=== PATIENT | male | born 1975 | race Caucasian/White ===

== ENCOUNTER 2017-11-15 19:20 | Emergency (ER) | payer OTHER ==
[~2017-11-15] VITALS: Ht 177.8 cm; Wt 68.0 kg
[~2017-11-15 19:20] MED LIST: ACET325 PO; AMOCLA875 PO; AMOX1XR PO; AMOX500 PO; AZIT250 PO; BENZ100A PO; CARB200 PO; CEPH500 PO; CHLO25 PO; CIPR500 PO; CLON.1 PO; CYCL10 PO; DIAZ10 PO; DIAZ5 PO; DIPATR PO; DIPH50 PO; DOXY100 PO; GABA300 PO; GUAI600T33 PO; HYDACE10B PO; HYDACE5 PO; HYDGUAL120 PO; KETO10 PO; LORA1 PO; LORA10ER PO; METR500 PO; Norco 7.5-3251 EACH PO; OXCA300; OXCA300 PO; OXYACE5T PO; OXYACE7.5T PO; PENVK500 PO; PROACE100 PO; PROM25 PO; QUET100; QUET300; QUET300 PO; RANI150 PO; ROXICET; RXCEPH500 PO; RXDIPATR PO; RXHYDACE PO; RXOXYACE PO; RXPENVK250 PO; RXPROM25 PO; RXTRAM50 PO; SULTRIDS PO; SUMA25; SUMA25 PO; TAMS.4ER PO; TRAM50 PO; TYLENOL PRN
== END 2017-11-15 20:02 | disposition home or self-care (01) ==
LOC: ER 19:20
DX: T40.1X1A Poisoning by heroin, accidental (unintentional), initial encounter (principal); F17.210 Nicotine dependence, cigarettes, uncomplicated
CPT/HCPCS: 99284

== ENCOUNTER 2018-08-06 03:13 | Emergency (ER) | payer MEDICAID ==
[~2018-08-06] VITALS: Ht 175.3 cm; Wt 77.1 kg
[2018-08-06] MEDS ORDERED: CLIN300 PO (03:34)
[2018-08-06 03:52] LABS: BASOPHILS ABSOLUTE AUTO 0.08 K/mm3 (0.00-0.23); BASOPHILS PERCENT AUTO 1 % (0-2); EOSINOPHILS ABSOLUTE AUTO 0.35 K/mm3 (0.00-0.68); EOSINOPHILS PERCENT AUTO 2 % (0-6); Hematocrit 40.6 % (37.0-53.0); Hemoglobin 13.8 g/dL (13.5-17.5); IMMATURE GRAN ABSOLUTE AUTO 0.05 K/mm3 (0.00-0.10); IMMATURE GRAN PERCENT AUTO 0 % (0-1); LYMPHOCYTES ABSOLUTE AUTO 2.84 K/mm3 (0.84-5.20); LYMPHOCYTES PERCENT AUTO 18 % (21-46); MONOCYTES ABSOLUTE AUTO 2.56 K/mm3 (0.16-1.47); MONOCYTES PERCENT AUTO 16 % (4-13); Mean Corpuscular HGB 28.7 pg (26.0-34.0); Mean Corpuscular Volume 84 fL (80-100); Mean Platelet Volume 9.6 fL (9.1-12.4); NEUTROPHILS ABSOLUTE AUTO 9.86 K/mm3 (1.96-9.15); NEUTROPHILS PERCENT AUTO 63 % (41-73); Platelet Count 313 K/mm3 (150-400); RDW Coefficient Variation 13.8 % (11.7-14.2); RDW Standard Deviation 42.7 fL (35.1-46.3); Red Blood Cell Count 4.81 M/mm3 (4.30-5.90); White Blood Cell Count 15.74 K/mm3 (4.00-11.30)
[2018-08-06 04:10] LABS: Alanine Aminotransfer (ALT/SGP 54 U/L (12-78); Albumin, Blood 4.1 g/dL (3.4-5.0); Albumin/Globulin Ratio 0.9 (0.8-1.8); Alk Phos 81 U/L (50-136); Anion Gap 7 mmol/L (6-16); Aspartate Aminotrans (AST/SGOT 34 U/L (12-37); Bilirubin, Total 0.8 mg/dL (0.1-1.0); Blood Urea Nitrogen 33 mg/dL (8-24); Bun/Creatinine Ratio 28.2 (12.0-20.0); CO2, Blood 28 mmol/L (21-32); Calcium, Blood 9.9 mg/dL (8.5-10.1); Chloride, Blood 103 mmol/L (98-108); Creatinine, Blood 1.17 mg/dL (0.60-1.20); Globulin, Blood 4.5 g/dL (2.2-4.0); Glomerular Filtration Rate >60 (60-); Glucose, Blood 114 mg/dL (70-99); Potassium, Blood 3.9 mmol/L (3.5-5.5); Sodium, Blood 138 mmol/L (136-145); Total Protein, Blood 8.6 g/dL (6.4-8.2)
[2018-08-06] MEDS ORDERED: Vibramycin100 MG PO (04:18)
== END 2018-08-06 04:55 | disposition home or self-care (01) ==
LOC: ER 03:13
PROVIDERS: Emergency Medicine
DX: L03.116 Cellulitis of left lower limb (principal); Z88.6 Allergy status to analgesic agent; Z88.8 Allergy status to other drugs, medicaments and biological substances; Z88.5 Allergy status to narcotic agent; Z79.899 Other long term (current) drug therapy; F31.9 Bipolar disorder, unspecified; F43.10 Post-traumatic stress disorder, unspecified; F17.210 Nicotine dependence, cigarettes, uncomplicated
CPT/HCPCS: 73701; 80053; 85025; 96365-59; 99284-25; Q9967

== ENCOUNTER 2018-08-06 14:53 | Emergency (ER) | payer MEDICAID ==
[~2018-08-06] VITALS: Ht 175.3 cm; Wt 74.8 kg
[~2018-08-06 14:53] MED LIST changes: +CLIN300 PO; +Vibramycin100 MG PO
== END 2018-08-06 17:27 | disposition home or self-care (01) ==
LOC: ER 14:53
DX: L03.116 Cellulitis of left lower limb (principal); L02.416 Cutaneous abscess of left lower limb; Z88.6 Allergy status to analgesic agent; Z88.8 Allergy status to other drugs, medicaments and biological substances; Z88.5 Allergy status to narcotic agent; Z79.899 Other long term (current) drug therapy; F17.210 Nicotine dependence, cigarettes, uncomplicated
CPT/HCPCS: 10060; 87070; 87075; 87077; 87147; 87186; 87205; 99283-25

== ENCOUNTER 2019-11-27 06:24 | Inpatient (IN) | payer OTHER | END 2019-11-30 17:35 | disposition left against medical advice (07) | DRG 854 | LOC: ER 06:24 → MEDS 10:21 | PROVIDERS: ADMIT Internal Medicine | PROC: 0J9F0ZZ Drainage of Left Upper Arm Subcutaneous Tissue and Fascia, Open Approach (ICD-10-PCS; principal; 2019-11-30) | PROC: 0J990ZZ Drainage of Buttock Subcutaneous Tissue and Fascia, Open Approach (ICD-10-PCS; 2019-11-30) | DX: A41.9 Sepsis, unspecified organism (principal); E87.1 Hypo-osmolality and hyponatremia; L03.114 Cellulitis of left upper limb; L03.317 Cellulitis of buttock; L02.31 Cutaneous abscess of buttock; L02.414 Cutaneous abscess of left upper limb; F17.210 Nicotine dependence, cigarettes, uncomplicated; F19.10 Other psychoactive substance abuse, uncomplicated; F31.9 Bipolar disorder, unspecified; Z89.201 Acquired absence of right upper limb, unspecified level; F43.10 Post-traumatic stress disorder, unspecified; D64.9 Anemia, unspecified ==

== ENCOUNTER 2021-02-04 21:47 | Emergency (ER) | payer OTHER ==
[~2021-02-04] VITALS: Ht 175.3 cm; Wt 86.2 kg
[~2021-02-04 21:47] MED LIST changes: +Bactrim Ds Tab1 EACH PO; +MONDOXYNE NL100 MG PO
== END 2021-02-04 23:31 | disposition home or self-care (01) ==
LOC: ER 21:47
DX: K43.9 Ventral hernia without obstruction or gangrene (principal); K42.9 Umbilical hernia without obstruction or gangrene; Z88.6 Allergy status to analgesic agent; Z88.5 Allergy status to narcotic agent; Z88.8 Allergy status to other drugs, medicaments and biological substances
CPT/HCPCS: 99283

== ENCOUNTER 2021-08-12 20:12 | Inpatient (IN) | payer OTHER ==
[~2021-08-12] VITALS: Ht 175.3 cm; Wt 96.5 kg
[2021-08-13 00:22] LABS: BASOPHILS ABSOLUTE AUTO 0.04 K/mm3 (0.00-0.23); BASOPHILS PERCENT AUTO 1 % (0-2); EOSINOPHILS ABSOLUTE AUTO 0.44 K/mm3 (0.00-0.68); EOSINOPHILS PERCENT AUTO 7 % (0-6); Hematocrit 40.5 % (37.0-53.0); Hemoglobin 13.8 g/dL (13.5-17.5); IMMATURE GRAN ABSOLUTE AUTO 0.01 K/mm3 (0.00-0.10); IMMATURE GRAN PERCENT AUTO 0 % (0-1); LYMPHOCYTES PERCENT AUTO 34 % (21-46); MONOCYTES ABSOLUTE AUTO 0.63 K/mm3 (0.16-1.47); MONOCYTES PERCENT AUTO 10 % (4-13); Mean Corpuscular HGB 28.4 pg (26.0-34.0); Mean Corpuscular HGB Conc 34.1 g/dL (31.5-36.5); Mean Corpuscular Volume 83 fL (80-100); Mean Platelet Volume 10.3 fL (9.1-12.4); NEUTROPHILS ABSOLUTE AUTO 3.14 K/mm3 (1.96-9.15); NEUTROPHILS PERCENT AUTO 49 % (41-73); Platelet Count 282 K/mm3 (150-400); RDW Coefficient Variation 13.4 % (11.7-14.2); RDW Standard Deviation 41.1 fL (35.1-46.3); Red Blood Cell Count 4.86 M/mm3 (4.30-5.90); White Blood Cell Count 6.46 K/mm3 (4.00-11.30)
[2021-08-13 00:43] LABS: Albumin, Blood 3.5 g/dL (3.4-5.0); Bilirubin, Total 0.6 mg/dL (0.1-1.0); Bun/Creatinine Ratio 13.1 (12.0-20.0); Calcium, Blood 9.2 mg/dL (8.5-10.1); Creatinine, Blood 0.61 mg/dL (0.60-1.20); Globulin, Blood 3.4 g/dL (2.2-4.0); Magnesium, Blood 2.3 mg/dL (1.6-2.4); Potassium, Blood 3.2 mmol/L (3.5-5.5); Total Protein, Blood 6.9 g/dL (6.4-8.2)
--- NOTE | 2021-08-13 06:24 | NUR ---
08/13/21 0624 Zoe Paulson COMPUTATIONAL BIOLOGIST Yoly KEBEDE PLACED POWERGLIDE PRIOR TO BRINGING BACK TO OR
--- NOTE | 2021-08-13 09:19 | NUR ---
TRANSFER UPDATE REPORT FROM INSIDE SALES ADMINISTRATOR AT 0730, PT ARRIVED AT 0745 VIA HOSPITAL BED. PT ON 3L NC UPON ARRIVAL. PT RESTING UPON ARRIVAL.
--- NOTE | 2021-08-13 14:27 | NUR ---
UPDATE PT ASLEEP UPON ARRIVAL TO UNIT AT 0745. PT BRIEFLY AWAKE DURING ADMISSION AND EXPRESSED AGITATION TO THE MULTIPLE QUESTIONS DURING THE ADMISSION. PT ORIENTED TO ROOM AND INFORMED OF DAY GUARD PUMP. PT TOWARDS THE END OF ADMISSION PROCESS QUIT ANSWEWRING QUESTIONS AND CLOSED HIS EYES. PT BEGAN SLEEPING MOMENTS LATER. AT NOON VITALS, PT BRIEFLY WOKE UP AND WENT IEMMEDIATLEY BACK TO SLEEP. AT 1400 THIS RN AGAIN WENT INTO PT ROOM, PT REMAINED ASLEEP.
--- NOTE | 2021-08-13 16:58 | NUR ---
TRANSFER UPDATE REPORT GIVEN TO HEAD FILTER TANK TENDER HELPER AT 1600. PT LEFT UNIT AT 1635 VIA HOSPITAL BED. PT RECIEVING DILAUDID VIA METAL FABRICATING SHOP HELPER PER ORDERS KAMRAN WITH LR. PT CHART WITH PT FOR TRANSFER.
--- NOTE | 2021-08-13 17:53 | NUR ---
SHIFT SUMMARY: PATIENT WAS A TRANSFER FROM PCU TODAY 08/13/21. POD 0 SIGMOID RESECTION WITH UMBILICAL HERNIA REPAIR WITHOUT MESH PATIENT CAME INTO ROOM A&OX4 BUT IS INTERMITTENTLY SLEEPY. PATIENT IS EASILY WOKEN UP TO TOUCH. POWERGLIDE IS IN RUE AND IS INFUSING LR WITH COLON THERAPIST DILAUDID. PATIENT HAS A MIA DRESSING THAT IS C/D/I WITH ABD BINDER ON. NIELSEN IS IN PLACE AND HAS YELLOW URINE IN NIELSEN BAG. PATIENT HAS CLEARS DINNER TRAY ON BEDSIDE TABLE BUT IS ASLEEP AT THIS TIME. PATIENT WAS EDUCATED THOUGH LAST TIME HE WAS AWAKE TO TAKE THE CLEARS SLOWLY. PATIENT VERBALIZED UNDERSTANDING FOR THIS. CALLS APPROPRIATELY. CALL LIGHT WITHIN REACH. THE PLAN IS TO CONTINUE PAIN MANAGEMENT AND ENCOURAGE AMBULATION WHEN APPROPRIATE.
--- NOTE | 2021-08-14 05:07 | NUR ---
SHIFT SUMMARY A/O X4. POD1 SIG COLECTOMY W/ HERNIA REPAIR. MIDLINE MIA INTACT W/RED DRIED DRAINAGE- ABDOMINAL BINDER IN PLACE. VITAL SIGNS STABLE. PT REPORTS MINIMAL PAIN THE DILAUDID PATIENT CARE TECHNICIAN IS IN PLACE TO MANAGE PAIN. NIELSEN DRAINING DANIELLE URINE TO GRAVITY. PT REMAINED BEDREST THROUGHOUT THE NIGHT HE WAS VERY DROWSY. TOLERATING CLEAR LIQ DIET, NO N/V REPORTED. PT DENIES PASSING FLATUS AT THIS TIME- BOWEL TONES ACTIVE IN ALL 4 QUADRANTS. WILL CONTINUE TO MONITOR AND REPORT TO ONCOMING RN.
[2021-08-14 05:52] LABS: BASOPHILS ABSOLUTE AUTO 0.02 K/mm3 (0.00-0.23); BASOPHILS PERCENT AUTO 0 % (0-2); EOSINOPHILS ABSOLUTE AUTO 0.03 K/mm3 (0.00-0.68); EOSINOPHILS PERCENT AUTO 0 % (0-6); Hematocrit 35.5 % (37.0-53.0); Hemoglobin 11.8 g/dL (13.5-17.5); IMMATURE GRAN ABSOLUTE AUTO 0.03 K/mm3 (0.00-0.10); IMMATURE GRAN PERCENT AUTO 0 % (0-1); LYMPHOCYTES ABSOLUTE AUTO 1.21 K/mm3 (0.84-5.20); LYMPHOCYTES PERCENT AUTO 14 % (21-46); MONOCYTES ABSOLUTE AUTO 1.11 K/mm3 (0.16-1.47); MONOCYTES PERCENT AUTO 13 % (4-13); Mean Corpuscular HGB 28.6 pg (26.0-34.0); Mean Corpuscular HGB Conc 33.2 g/dL (31.5-36.5); Mean Corpuscular Volume 86 fL (80-100); Mean Platelet Volume 9.9 fL (9.1-12.4); NEUTROPHILS ABSOLUTE AUTO 6.29 K/mm3 (1.96-9.15); NEUTROPHILS PERCENT AUTO 73 % (41-73); Platelet Count 291 K/mm3 (150-400); RDW Coefficient Variation 13.4 % (11.7-14.2); RDW Standard Deviation 41.9 fL (35.1-46.3); Red Blood Cell Count 4.13 M/mm3 (4.30-5.90); White Blood Cell Count 8.69 K/mm3 (4.00-11.30)
[2021-08-14 06:41] LABS: Bun/Creatinine Ratio 13.2 (12.0-20.0); Calcium, Blood 8.9 mg/dL (8.5-10.1); Creatinine, Blood 0.45 mg/dL (0.60-1.20); Potassium, Blood 3.5 mmol/L (3.5-5.5)
--- NOTE | 2021-08-14 18:35 | NUR ---
SHIFT SUMMARY PT IS POD#1 FROM SIGMOID COLECTOMY AND HERNIA REPAIR. PAIN MANAGED WITH PIPELINE MAINTENANCE SUPERVISOR. PT RELUCTANT TO GET OOB BUT DID WALK IN THE ROOM AND SIT UP TO THE CHAIR THIS EVENING. PT TOLERATING CLEAR LIQUIDS. WILL MONITOR UNTIL REPORT TO KRYSTEN FLORES.
--- NOTE | 2021-08-15 04:38 | NUR ---
SHIFT SUMMARY A/O X4. POD1 SIGMOID RESECTION AND HERNIA REPAIR W/O MESH. PT STATES THAT DILAUDID VOUCHER EXAMINER IS WORKING TO MANAGING PAIN. CONTINUED CLEAR LIQ DIET THIS SHIFT, TOLERATING WELL- NO REPORTS OF N/V. PT REPORTS PASSING FLATUS. VITAL SIGNS STABLE. WILL CONTINUE TO MONITOR AND REPORT TO ONCOMING RN.
--- NOTE | 2021-08-15 18:39 | NUR ---
SHIFT SUMMARY PT IS POD#2 FROM A SIGMOID COLECTOMY WITH DR. POST. PT WAS TRANSITIONED FROM DEVELOPMENT TEAM LEAD TO PO PERCOCET WITH DILAUDID FOR BREAKTHROUGH PAIN. PT WAS ABLE TO AMBULATE IN THE HALWAYS INDEPENDENTLY. PT IS PASSING FLATUS BUT NO BM. WILL MONITOR UNTIL REPORT TO NOC RN.
--- NOTE | 2021-08-16 04:32 | NUR ---
SHIFT SUMMARY A/O X4. IND IN ROOM. POD3 SIGMOID COLECTOMY W/ HERNIA REPAIR. REPORTS PASSING FLATUS BUT NO BM AT THIS TIME. VOIDING WELL. TOLERATING CLEAR LIQ DIET. AMBULATING WELL. PAIN MANAGED W/ PO PAIN MEDICATION AND IV BREAKTHROUGH PAIN MEDICATION. NO ACUTE CHANGES THIS SHIFT. WILL CONTINUE TO MONITOR AND REPORT TO ONCOMING RN.
[2021-08-16 05:27] LABS: BASOPHILS ABSOLUTE AUTO 0.02 K/mm3 (0.00-0.23); BASOPHILS PERCENT AUTO 0 % (0-2); EOSINOPHILS ABSOLUTE AUTO 0.31 K/mm3 (0.00-0.68); EOSINOPHILS PERCENT AUTO 5 % (0-6); Hemoglobin 12.1 g/dL (13.5-17.5); IMMATURE GRAN ABSOLUTE AUTO 0.02 K/mm3 (0.00-0.10); IMMATURE GRAN PERCENT AUTO 0 % (0-1); LYMPHOCYTES ABSOLUTE AUTO 2.23 K/mm3 (0.84-5.20); LYMPHOCYTES PERCENT AUTO 37 % (21-46); MONOCYTES ABSOLUTE AUTO 0.63 K/mm3 (0.16-1.47); MONOCYTES PERCENT AUTO 10 % (4-13); Mean Corpuscular HGB 28.6 pg (26.0-34.0); Mean Corpuscular HGB Conc 33.6 g/dL (31.5-36.5); Mean Corpuscular Volume 85 fL (80-100); NEUTROPHILS ABSOLUTE AUTO 2.84 K/mm3 (1.96-9.15); NEUTROPHILS PERCENT AUTO 47 % (41-73); Platelet Count 260 K/mm3 (150-400); RDW Coefficient Variation 13.3 % (11.7-14.2); RDW Standard Deviation 41.1 fL (35.1-46.3); Red Blood Cell Count 4.23 M/mm3 (4.30-5.90); White Blood Cell Count 6.05 K/mm3 (4.00-11.30)
[2021-08-16 05:46] LABS: Bun/Creatinine Ratio 7.2 (12.0-20.0); Calcium, Blood 8.6 mg/dL (8.5-10.1); Creatinine, Blood 0.55 mg/dL (0.60-1.20); Potassium, Blood 3.2 mmol/L (3.5-5.5)
--- NOTE | 2021-08-16 13:10 | NUR ---
PATIENT AMBULATED INDEPENDENTLY OUT OF UNIT.
--- NOTE | 2021-08-16 14:00 | NUR ---
PATIENT RETURNED TO ROOM
--- NOTE | 2021-08-16 17:55 | NUR ---
SHIFT SUMMARY POD 3 SIGMOID COLECTOMY, MIDLINE MIA IN PLACE WITH GOOD SEAL. TOLERATING FULL LIQUID DIET, DENIES N/V. REPORTS HAVING 2 BM'S TODAY, SOFT/BROWN. VOIDING WELL. AMBULATING INDEPENDENTLY IN ROOM AND HALLWAYS THROUGHOUT DAY. REPORTS MODERATE PAIN THROUGHOUT SHIFT, MEDICATED WITH PERCOCET & DILAUDID PER EMAR. WILL REPORT TO ONCOMNG RN.
--- NOTE | 2021-08-17 05:32 | NUR ---
SHIFT SUMMARY POD4 SIGMOID COLECTOMY W/ HERNIA REPAIR- MIA DRESSING IN PLACE, NO CHANGES SINCE PREVIOUS ASSESSMENT. AMBULATING WELL THROUGHOUT HALLS. PASSING FLATUS WELL BOWEL MOVEMENTS, VOIDING WELL. TOLERATING FULL LIQUID DIET W/ NO REPORT OF NAUSEA OR VOMITING. PAIN MANAGED THROUGHOUT SHIFT W/ PO PAIN MEDICATIONS ONLY PER EMAR. WILL CONTINUE TO MONITOR AND REPORT TO ONCOMING RN.
[2021-08-17] MEDS ORDERED: Percocet 5-3251 EACH PO (08:23)
--- NOTE | 2021-08-17 08:52 | NUR ---
DISCHARGE POD 4 SIGMOID COLECTOMY W/ HERNIA REPAIR. MIDLINE MIA & ABDOMINAL BINDER REMAIN IN [place]. INSTRUCTED PATIENT ON REMOVING MIA TO SHOWER, WOUND & SKIN CARE AROUND INCISION. TOLERATING FULL LIQUIDS, DRINKING, & VOIDING WELL. AMBULATING HALLWAYS WELL. REPORTS PAIN TO BE TOLERABLE THIS AM. ATTEMPTED TO DISCUSS DISCHARGE INSTRUCTIONS WITH PATIENT. PATIENT APPEARED UNINTERESTED AND STATED "GO AHEAD, IM LISTENING" WHILE HE PROCEEDED TO GATHER HIS BELONGINGS AND GET DRESSED. VERBALIZED THAT HE UNDERSTOOD AND HAD NO QUESTIONS OR CONCERNS. DECLINED W/C, AMBULATED OUT INDEPENDENTLY.
== END 2021-08-17 08:50 | disposition home or self-care (01) | DRG 330 ==
LOC: ER 20:12 → PCU 08-13 02:53 → SURS 08-13 02:53 → PCU 08-13 07:43 → SURS 08-13 17:15
PROVIDERS: Student in an Organized Health Care Education/Training Program; ADMIT Surgery
PROC: 0DBN0ZZ Excision of Sigmoid Colon, Open Approach (ICD-10-PCS; principal; 2021-08-13 04:00)
PROC: 0WQF0ZZ Repair Abdominal Wall, Open Approach (ICD-10-PCS; 2021-08-13 04:00)
DX: K42.0 Umbilical hernia with obstruction, without gangrene (principal); K55.9 Vascular disorder of intestine, unspecified; F15.10 Other stimulant abuse, uncomplicated; F19.10 Other psychoactive substance abuse, uncomplicated; F31.9 Bipolar disorder, unspecified; F43.10 Post-traumatic stress disorder, unspecified; F41.9 Anxiety disorder, unspecified; Z88.5 Allergy status to narcotic agent; Z88.6 Allergy status to analgesic agent; Z88.8 Allergy status to other drugs, medicaments and biological substances; Z89.201 Acquired absence of right upper limb, unspecified level; Z90.89 Acquired absence of other organs; Z79.899 Other long term (current) drug therapy
CPT/HCPCS: 36415; 74177; 80048; 80053; 83605; 83735; 85025; 88307; 94762; 96374; 96375; 99285-25; A9270; C1751; J0295; J1100; J1170; J1650; J2250; J2270; J2405; J2704; J3010; J7030; J7120; Q9967

== ENCOUNTER 2021-12-03 03:37 | Emergency (ER) | payer OTHER ==
[~2021-12-03] VITALS: Ht 175.3 cm; Wt 77.1 kg
[~2021-12-03 03:37] MED LIST changes: +Percocet 5-3251 EACH PO
[2021-12-03] MEDS ORDERED: SULTRIDS PO (04:07)
== END 2021-12-03 04:45 | disposition home or self-care (01) ==
LOC: ER 03:37
DX: L02.31 Cutaneous abscess of buttock (principal); F17.210 Nicotine dependence, cigarettes, uncomplicated; Z88.5 Allergy status to narcotic agent; Z88.8 Allergy status to other drugs, medicaments and biological substances; Z88.6 Allergy status to analgesic agent
CPT/HCPCS: A9270

== ENCOUNTER 2022-05-18 23:43 | Inpatient (IN) | payer OTHER ==
[~2022-05-18] VITALS: Ht 172.7 cm; Wt 85.5 kg
[~2022-05-18 23:43] MED LIST changes: +Colace100 MG PO
[2022-05-19 01:28] LABS: BASOPHILS ABSOLUTE AUTO 0.04 K/mm3 (0.00-0.23); BASOPHILS PERCENT AUTO 0 % (0-2); EOSINOPHILS ABSOLUTE AUTO 0.06 K/mm3 (0.00-0.68); EOSINOPHILS PERCENT AUTO 1 % (0-6); Hematocrit 38.2 % (37.0-53.0); IMMATURE GRAN ABSOLUTE AUTO 0.04 K/mm3 (0.00-0.10); IMMATURE GRAN PERCENT AUTO 0 % (0-1); LYMPHOCYTES ABSOLUTE AUTO 1.18 K/mm3 (0.84-5.20); LYMPHOCYTES PERCENT AUTO 9 % (21-46); MONOCYTES PERCENT AUTO 14 % (4-13); Mean Corpuscular HGB 27.9 pg (26.0-34.0); Mean Corpuscular Volume 82 fL (80-100); Mean Platelet Volume 9.7 fL (9.1-12.4); NEUTROPHILS ABSOLUTE AUTO 9.93 K/mm3 (1.96-9.15); NEUTROPHILS PERCENT AUTO 76 % (41-73); Platelet Count 321 K/mm3 (150-400); RDW Coefficient Variation 12.4 % (11.7-14.2); RDW Standard Deviation 37.3 fL (35.1-46.3); Red Blood Cell Count 4.66 M/mm3 (4.30-5.90); White Blood Cell Count 13.05 K/mm3 (4.00-11.30)
[2022-05-19 02:04] LABS: Albumin, Blood 3.1 g/dL (3.4-5.0); Albumin/Globulin Ratio 0.7 (0.8-1.8); Bilirubin, Total 0.6 mg/dL (0.1-1.0); Creatinine, Blood 0.61 mg/dL (0.60-1.20); Globulin, Blood 4.5 g/dL (2.2-4.0); Potassium, Blood 3.6 mmol/L (3.5-5.5); Total Protein, Blood 7.6 g/dL (6.4-8.2)
--- NOTE | 2022-05-19 02:09 | NUR ---
PT ARRIVED FROM ED, PT ORIENTED TO ROOM, CALL LIGHT IN HAND.
[2022-05-19 05:43] LABS: BASOPHILS ABSOLUTE AUTO 0.04 K/mm3 (0.00-0.23); BASOPHILS PERCENT AUTO 0 % (0-2); EOSINOPHILS ABSOLUTE AUTO 0.18 K/mm3 (0.00-0.68); EOSINOPHILS PERCENT AUTO 2 % (0-6); Hematocrit 36.4 % (37.0-53.0); Hemoglobin 12.3 g/dL (13.5-17.5); IMMATURE GRAN ABSOLUTE AUTO 0.04 K/mm3 (0.00-0.10); IMMATURE GRAN PERCENT AUTO 0 % (0-1); LYMPHOCYTES ABSOLUTE AUTO 1.44 K/mm3 (0.84-5.20); LYMPHOCYTES PERCENT AUTO 14 % (21-46); MONOCYTES ABSOLUTE AUTO 1.38 K/mm3 (0.16-1.47); MONOCYTES PERCENT AUTO 13 % (4-13); Mean Corpuscular HGB 28.2 pg (26.0-34.0); Mean Corpuscular HGB Conc 33.8 g/dL (31.5-36.5); Mean Corpuscular Volume 84 fL (80-100); Mean Platelet Volume 10.1 fL (9.1-12.4); NEUTROPHILS ABSOLUTE AUTO 7.38 K/mm3 (1.96-9.15); NEUTROPHILS PERCENT AUTO 71 % (41-73); Platelet Count 306 K/mm3 (150-400); RDW Coefficient Variation 12.4 % (11.7-14.2); RDW Standard Deviation 37.9 fL (35.1-46.3); Red Blood Cell Count 4.36 M/mm3 (4.30-5.90); White Blood Cell Count 10.46 K/mm3 (4.00-11.30)
[2022-05-19 06:14] LABS: Albumin, Blood 2.7 g/dL (3.4-5.0); Albumin/Globulin Ratio 0.7 (0.8-1.8); Bilirubin, Total 0.7 mg/dL (0.1-1.0); Bun/Creatinine Ratio 15.7 (12.0-20.0); Calcium, Blood 8.6 mg/dL (8.5-10.1); Creatinine, Blood 0.57 mg/dL (0.60-1.20); Globulin, Blood 3.9 g/dL (2.2-4.0); Potassium, Blood 3.2 mmol/L (3.5-5.5); Total Protein, Blood 6.6 g/dL (6.4-8.2)
--- NOTE | 2022-05-19 06:26 | NUR ---
PT NPO, IV FLUIDS RUNNING. PT PLACED IN CONTACT ISOLATION IN PREPERATION FOR RETURN AFTER I/D, WOUND IN CLOSED AT THIS TIME. PT SLEEPING SINCE ARRIVAL.
[2022-05-19 12:26] LABS: U Amphetamine Screen DETECTED; U Barbituate Screen Not Detected; U Benzodiazapine Screen Not Detected; U Buprenorphine Screen Not Detected; U Cannabinoids Screen DETECTED; U Cocaine Screen Not Detected; U Methadone Screen Not Detected; U Methamphetamine Screen DETECTED; U Opiates Screen DETECTED; U Oxycodone Screen Not Detected; U Phencyclidine Screen Not Detected; U Propoxyphene Screen Not Detected
--- NOTE | 2022-05-19 14:40 | NUR ---
PT HAS 20G IV IN LEFT HAND THAT FLUSHES WELL AND FLOWS TO GRAVITY.
--- NOTE | 2022-05-19 14:40 | NUR ---
PT BROUGHT FROM FLOOR TO DAY SURGERY FOR PROCEDURE.
--- NOTE | 2022-05-19 17:39 | NUR ---
PT RETURNED FROM SURGERY/PACU AND IV WAS INFILTRATED. PT DID NOT RECEIVE HIS 1200 DOSE OF ZOSYN. PT WENT DOWN TO SURGERY WITH ZOSYN HANGING ON IV POLE AND IT WAS NOT ADMINISTERED. PHARMACY NOTIFIED AND MD CAGLE NOTIFIED. RN NOTIFIED CHARGE NURSE AND POWERGLIDE WILL BE ADMINISTERED KEON TASNEEM.
--- NOTE | 2022-05-19 18:36 | NUR ---
PT COOPERATIVE THIS SHIFT. NO IV ACCESS AFTER PT CAME BACK FROM SURGERY. POWERGLIDE NOT ABLE TO BE PLACED THIS SHIFT. REAL ESTATE OPERATIONS MANAGER TO PLACE POWERGLIDE FOR IV ABO. PHARMACY NOTIFIED REGARDING RETIMING OF MEDS. MD ADKINS NOTIFIED OF PT'S IV STATUS. VERABLIZED TO NOTIFY NOC IF NO IV ACCESS OBTAINED BY 0000 TONIGHT. PT WILL NEED IM ABO ORDERED.
[2022-05-20 03:18] LABS: BASOPHILS ABSOLUTE AUTO 0.02 K/mm3 (0.00-0.23); BASOPHILS PERCENT AUTO 0 % (0-2); EOSINOPHILS PERCENT AUTO 0 % (0-6); Hematocrit 34.2 % (37.0-53.0); Hemoglobin 11.4 g/dL (13.5-17.5); IMMATURE GRAN ABSOLUTE AUTO 0.05 K/mm3 (0.00-0.10); IMMATURE GRAN PERCENT AUTO 1 % (0-1); LYMPHOCYTES ABSOLUTE AUTO 0.65 K/mm3 (0.84-5.20); LYMPHOCYTES PERCENT AUTO 7 % (21-46); MONOCYTES ABSOLUTE AUTO 0.74 K/mm3 (0.16-1.47); MONOCYTES PERCENT AUTO 8 % (4-13); Mean Corpuscular HGB 27.6 pg (26.0-34.0); Mean Corpuscular HGB Conc 33.3 g/dL (31.5-36.5); Mean Corpuscular Volume 83 fL (80-100); Mean Platelet Volume 9.5 fL (9.1-12.4); NEUTROPHILS ABSOLUTE AUTO 8.25 K/mm3 (1.96-9.15); NEUTROPHILS PERCENT AUTO 85 % (41-73); Platelet Count 316 K/mm3 (150-400); RDW Coefficient Variation 12.3 % (11.7-14.2); RDW Standard Deviation 37.6 fL (35.1-46.3); Red Blood Cell Count 4.13 M/mm3 (4.30-5.90); White Blood Cell Count 9.71 K/mm3 (4.00-11.30)
--- NOTE | 2022-05-20 03:46 | NUR ---
BAR SUPERVISOR SUMMARY POST OP VS VSS. RETURNED TO FLOOR FROM LEFT HIP SURGERY ON DAY SHIFT PRIOR TO SHIFT START. DRESSING OF LEFT HIP INTACT, NOTED SOME BLEEDING. UP TO BATHROOM WITHOUT DISTRESS NEEDED. IV PLACED AND ANTIBIOTICS RESTARTED - SEE MAR FOR DETAILS. ISOLATION FOR MRSA CONTINUES. CALL LIGHT IN REACH. WILL CONTINUE TO MONITOR.
[2022-05-20 12:09] LABS: Vancomycin, Trough 7.3 ug/mL (5.0-10.0)
--- NOTE | 2022-05-20 19:45 | NUR ---
SHIFT SUMMARY- PT IS ALERT AND ORIENTED X4. INDEPENDENT IN ROOM, R/A, RESTING COMFORTABLY. PT IS ABLE TO EXPRESS NEEDS. BANDAGE ON HIP SOAKED AND LEAKING OUT. PER SURGEON, CHANGE DRESSING WITH GAUZE AND ABD PADS. BED IS IN THE LOWEST POSITION WITH CALL LIGHT IN REACH.
--- NOTE | 2022-05-21 05:43 | NUR ---
GEAR TOOTH GRINDING MACHINE OPERATOR SUMMARY: A&Ox4. CALLS APPROPRIATELY AND IS ABLE TO COMMUNICATE NEEDS EFFECTIVELY. ORIENTED TO ABILITIES AND EXHIBITS MODERATE JUDGMENT. VANCO TROUGH WAS LATE YESTERDAY, SO VANCO AND ZOSYN HAVE BEEN ALTERNATING, CONTINUOUSLY, T/O THE NIGHT. THIS FRUSTRATES HIM BECAUSE HE CANNOT SLEEP WELL WHILE IV IS IS HOOKED UP TO PUMP. BPs CONTINUE TO BE SOFT DURING THIS SHIFT. NO ACUTE CONCERNS T/O THE NIGHT. LABS DRAWN THIS AM; NO CRITICAL RESULTS RECEIVED AT THIS TIME. REPORT TO ONCOMING RN.
[2022-05-21 06:19] LABS: BASOPHILS ABSOLUTE AUTO 0.05 K/mm3 (0.00-0.23); BASOPHILS PERCENT AUTO 1 % (0-2); EOSINOPHILS ABSOLUTE AUTO 0.21 K/mm3 (0.00-0.68); EOSINOPHILS PERCENT AUTO 3 % (0-6); Hematocrit 35.6 % (37.0-53.0); Hemoglobin 11.7 g/dL (13.5-17.5); IMMATURE GRAN ABSOLUTE AUTO 0.09 K/mm3 (0.00-0.10); IMMATURE GRAN PERCENT AUTO 1 % (0-1); LYMPHOCYTES PERCENT AUTO 27 % (21-46); MONOCYTES ABSOLUTE AUTO 0.98 K/mm3 (0.16-1.47); MONOCYTES PERCENT AUTO 12 % (4-13); Mean Corpuscular HGB 27.4 pg (26.0-34.0); Mean Corpuscular HGB Conc 32.9 g/dL (31.5-36.5); Mean Corpuscular Volume 83 fL (80-100); Mean Platelet Volume 10.4 fL (9.1-12.4); NEUTROPHILS PERCENT AUTO 56 % (41-73); Platelet Count 349 K/mm3 (150-400); RDW Coefficient Variation 12.4 % (11.7-14.2); RDW Standard Deviation 37.2 fL (35.1-46.3); Red Blood Cell Count 4.27 M/mm3 (4.30-5.90); White Blood Cell Count 8.03 K/mm3 (4.00-11.30)
[2022-05-21 06:36] LABS: Bun/Creatinine Ratio 11.1 (12.0-20.0); Calcium, Blood 8.5 mg/dL (8.5-10.1); Creatinine, Blood 0.63 mg/dL (0.60-1.20); Potassium, Blood 3.3 mmol/L (3.5-5.5)
[2022-05-21 11:37] LABS: Vancomycin, Trough 23.3 ug/mL (5.0-10.0)
[2022-05-21 12:09] LABS: HIV AB/P24 AG SCREEN Non Reactive (Non Reactive)
--- NOTE | 2022-05-21 16:44 | NUR ---
SHIFT SUMMARY PT A&OX4, MOOD UP AND DOWN T/O SHIFT PT APPEARS FLAT AND WITHDRAWN. PT WANTS TO AMBULATE HALLS, UNABLE TO AT THIS TIME DUE TO CURRENT MRSA INFECTION. TOLERATING PO INTAKE WELL. IV ABX. CALL LIGHT W/ IN REACH.
--- NOTE | 2022-05-21 20:00 | NUR ---
Patient tearful and wanting to leave AMA. Patient states he has been incarcerated in the past and he feels like he is in [facility]. He is not able to sleep or tolerate being here. Discussed Pro's and Con's of leaving with patient. 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 Offerred to get a sleeping med or somethin to help him stay for another day Patient states he can't stay. Drsg to left hip was changed. Patient state he will see his PCP on Monday. Pt left with all belongings and told he can return to ER if he becomes sick again. AMA paper signed and subassembly supervisor notified. RN of pt will notify
[2022-05-26 14:11] LABS: HEPATITIS C GENOTYPE 3 (.); HEPATITIS C QUANTITATION 2570000 IU/mL (.)
[2022-05-26 19:06] LABS: 6-ACETYLMORPHINE Not Detected (.); CARBOXY-THC >420 (.)
== END 2022-05-21 19:52 | disposition left against medical advice (07) | DRG 872 ==
LOC: ER 23:43 → MEDS 23:44
PROVIDERS: Emergency Medicine; Student in an Organized Health Care Education/Training Program; Surgery; ADMIT Internal Medicine
PROC: 3E03329 Introduction of Other Anti-infective into Peripheral Vein, Percutaneous Approach (ICD-10-PCS; 2022-05-18)
PROC: 0J9M0ZZ Drainage of Left Upper Leg Subcutaneous Tissue and Fascia, Open Approach (ICD-10-PCS; principal; 2022-05-19 15:00)
DX: A41.01 Sepsis due to Methicillin susceptible Staphylococcus aureus (principal); L02.416 Cutaneous abscess of left lower limb; E87.6 Hypokalemia; F31.9 Bipolar disorder, unspecified; F43.10 Post-traumatic stress disorder, unspecified; G43.909 Migraine, unspecified, not intractable, without status migrainosus; F11.10 Opioid abuse, uncomplicated; F17.210 Nicotine dependence, cigarettes, uncomplicated; F12.10 Cannabis abuse, uncomplicated; F41.9 Anxiety disorder, unspecified; F15.10 Other stimulant abuse, uncomplicated; B19.20 Unspecified viral hepatitis C without hepatic coma; F60.2 Antisocial personality disorder; F60.3 Borderline personality disorder; Z28.21 Immunization not carried out because of patient refusal; Z86.14 Personal history of Methicillin resistant Staphylococcus aureus infection; Z98.890 Other specified postprocedural states; Z98.52 Vasectomy status; Z87.442 Personal history of urinary calculi; Z89.201 Acquired absence of right upper limb, unspecified level; Z88.8 Allergy status to other drugs, medicaments and biological substances; Z88.5 Allergy status to narcotic agent; Z86.19 Personal history of other infectious and parasitic diseases
CPT/HCPCS: 36415; 73701; 80048; 80053; 80202; 83605; 85025; 87040; 87070; 87075; 87077; 87147; 87186; 87205; 87389; 87522; 87902; 96374; 96375; 99285; A9270; G0378; G0480; J0690; J1100; J1650; J1885; J2250; J2370; J2405; J2543; J2704; J3010; J3370; J3480; J7030; J7050; Q9967